=== PATIENT | male | born 1985 | race Caucasian/White ===

== ENCOUNTER 2021-01-23 11:02 | Emergency (ER) | payer OTHER ==
[~2021-01-23] VITALS: Ht 190.5 cm; Wt 164.2 kg
[2021-01-23] MEDS ORDERED: LORazepam 2MG/ML-1ML VIAL IV ONE (11:30)
[2021-01-23] MEDS ORDERED: HYDROmorphone HCL 2 MG/ML VL IV ONE ×2 (11:30→13:15)
[2021-01-23] MEDS ORDERED: ONDANSETRON HCL 4 MG/2 ML VIAL IV ONE (11:30)
[2021-01-23 15:30] VITALS: BP 109/55
== END 2021-01-23 15:50 | disposition home or self-care (01) ==
LOC: ER 11:02 → EDBD 11:02 → ER 15:50
DX: M54.16 Radiculopathy, lumbar region (principal)
CPT/HCPCS: 72131; 96374; 96375; 96376; 99284; J1170; J2060; J2405